=== PATIENT | male | born 1965 | race Caucasian/White ===

== ENCOUNTER → 2018-04-20 | Outpatient (CLI) | payer OTHER ==
[~2018-04-20] VITALS: Ht 170.2 cm; Wt 93.0 kg
[~2018-04-20] MED LIST: CENTRUM SILVER1 EAC1 PO; CYANOCOBALAM1000 MCG PO; FISH OIL 1,0001 EAC7 PO; FLEXERIL10 MG PO; PRAVACHOL20 MG PO; PREVACID15 MG PO; TENORMIN50 MG PO
== END | disposition home or self-care (01) ==
LOC: AMB 10:00
PROC: 0DJD8ZZ Inspection of Lower Intestinal Tract, Via Natural or Artificial Opening Endoscopic (ICD-10-PCS; principal; 2018-04-20)
DX: Z12.11 Encounter for screening for malignant neoplasm of colon (principal)
CPT/HCPCS: 93005